=== PATIENT | female | born 1955 ===

== ENCOUNTER 2020-05-20 17:31 | Day surgery (SDC) | payer MEDICARE, BC ==
[~2020-05-20] VITALS: Ht 167.6 cm; Wt 85.4 kg
[2020-05-20] VITALS (10 sets, daily range): BP systolic 122–156; BP diastolic 62–82; PULSE 67–79; TEMP 98.1–98.2
[2020-05-20] MEDS ORDERED: SEROQUEL 2525 MG/TAB PO (17:49)
[2020-05-20] MEDS ORDERED: IMITREX100 MG PO (17:51)
[2020-05-20] MEDS ORDERED: ZOCOR 20MG20 MG PO (17:51)
[2020-05-20] MEDS ORDERED: REQUIP 1MG T1 MG/TAB PO (17:52)
[2020-05-20] MEDS ORDERED: EFFEXOR 75M75 MG/TAB PO (17:52)
[2020-05-20] MEDS ORDERED: CALCIUM 600MG+D1 TAB PO (17:53)
[2020-05-20] MEDS ORDERED: TEGRETOL 2200 MG/TA1 PO (17:54)
[2020-05-20] MEDS ORDERED: ZYRTEC 10MG10 MG PO (17:54)
[2020-05-20] MEDS ORDERED: NEURONTIN300 MG/CAP PO (17:55)
[2020-05-20] MEDS ORDERED: TOPROL XL 50MG50 MG PO (17:55)
[2020-05-20] MEDS ORDERED: DUO-KAPS1 CAP PO (17:56)
[2020-05-20] MEDS ORDERED: FLOMAX 0.40.4 MG/CAP PO (17:57)
[2020-05-20] MEDS ORDERED: VITAMIN D31000 I1 PO (17:57)
[2020-05-20] MEDS ORDERED: PREDNISONE20 MG PO (17:57)
[2020-05-20] MEDS ORDERED: THE MEDICINE S200 M2 PO (18:05)
[2020-05-20] MEDS ORDERED: TYLENOL 325MG325 MG PO (18:05)
[2020-05-20] MEDS ORDERED: PROTONIX 40MG T40 MG PO (18:06)
[2020-05-20] MEDS ORDERED: NORCO 325 MG-51 TAB PO (18:08)
[2020-05-20] MEDS ORDERED: COLACE 100100 MG/CAP PO (18:10)
[2020-05-20] MEDS ORDERED: SPIRIVA RE2.5 MCG/Ac IH (18:13)
--- NOTE | 2020-05-20 18:18 | NUR ---
PATIENT ADMITTED TO ROOM 323. SAW PATIENT AT BEDSIDE. ANESTHESIA MARLEY SQUIRES SAW PATIENT AT BEDSIDE. PATIENT DRESSED IN GOWN. THEY ARE REDY TO TAKE PATIENT TO OR. INTIAL & MED REC COMPLETED. IVF TO GRAVITY. CONSENT OBTAINED. PATIENT TO THE OR WITH [facility] OR NURSE.
--- NOTE | 2020-05-20 19:15 | NUR ---
Pt. to the floor from PACU. Pt. is A&OX3, assessment complete. INT to lt. forearm patent. Pt. assisted to the bathroom with standby assist. Pt. denies pain. Post op vitals started and stable. Pt. denies further needs, call light within reach.
[2020-05-21 04:15] VITALS: BP 126/60; PULSE 63; TEMP 97.9
[2020-05-21 07:20] VITALS: BP 118/63; PULSE 65; TEMP 98.3
--- NOTE | 2020-05-21 07:30 | NUR ---
Patient resting in bed eating breakfast at this time. Patient is alert and oriented, answers questions appropriately. Patient denies pain at this time and asks when she will be able to discharge. Explained to patient that discharge orders would be put in when attending physician rounds. Patient verbalized understanding and denied further needs. Call light within reach.
--- NOTE | 2020-05-21 11:00 | NUR ---
Discharge teaching completed. Discussed discharge instructions, follow up appointments, discharge medications, and activity restrictions. Patient verbalized understanding and denied questions. INT removed from left hand, catheter intact, hemostasis achieved. Patient escorted to ED entrance where she entered a private vehicle.
== END 2020-05-21 11:00 | disposition home or self-care (01) ==
LOC: SURG 17:31 → SDCO 17:31
DX: N20.1 Calculus of ureter (principal); N81.10 Cystocele, unspecified; J44.9 Chronic obstructive pulmonary disease, unspecified; G47.33 Obstructive sleep apnea (adult) (pediatric); F32.9 Major depressive disorder, single episode, unspecified; Z88.5 Allergy status to narcotic agent; Z79.899 Other long term (current) drug therapy
CPT/HCPCS: OP; C1769; C2617; J0690; J1100; J2405; J2704; J3010; J7120; Q9967